=== PATIENT | female | born 2000 | race African-American/Black ===

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

== ENCOUNTER 2018-01-02 17:37 | Emergency (ER) | payer OTHER ==
[2018-01-02 18:17] VITALS: BP 137/73; PULSE 101; TEMP 98.3; BMI 27.0
--- NOTE | 2018-01-02 19:16 | PDOC ---
History of Present Illness - General History Source: Patient Exam Limitations: No Limitations - History of Present Illness Initial Comments: 01/02/18 19:46 A portion of this note was documented by scribe services under my direction. I have reviewed the details of the note, within reason, and agree with the documentation. The case summary and management plan written by me. Assessment and plan: This is a 17-year-old female who comes in complaining of vaginal odor and some discharge. Patient does have a history of an STD chlamydia in the past. Patient midcycle for her menses. Patient otherwise denies any pain fevers or chills. On exam patient did have a moderate amount of discharge with odor. Consistent with bacterial vaginosis. Chlamydia and GC were sent Patient started on Flagyl one tablet twice a day for 7 days Patient instructed to refrain from sexual intercourse until she knows the results of her cultures and if either one is positive she will need to be treated as well as her partner Patient discharged home and told to follow-up with her OB. <Boris Mejias I - Last Filed: 01/02/18 19:46> - General History Source: Patient Exam Limitations: No Limitations - History of Present Illness Initial Comments: The patient is a 17 year old female with past medical history of epilepsy and chlamydia is brought to the ED campaign of fishy odor white vaginal discharge for the past one week. The patient reports shes been sexually active with the same partner for the past one year, she reports having intercourse with and without protections. The patient denies any fever, chills, or any pain. The patient denies any vaginal bleeding. The patient reports shes planning on taking control in the future. Last menses: December 10, 2017 Allergies: NKDA 01/02/18 20:07 <Kayla Malone - Last Filed: 01/02/18 20:12> - General Chief Complaint: Vaginal Sxs Stated Complaint: VAG.DISCHARGE WITH ODOR Time Seen by Provider: 01/02/18 17:42 Past History - Past Medical History COPD: No Seizures: Yes - Suicide/Smoking/Psychosocial Hx Smoking History: Never smoked Have you smoked in the past 12 months: No Hx Alcohol Use: No Drug/Substance Use Hx: No Substance Use Type: None <Boris Mejias I - Last Filed: 01/02/18 19:46> <Kayla Malone - Last Filed: 01/02/18 20:12> - Past Medical History Allergies/Adverse Reactions: Allergies Allergy/AdvReac Type Severity Reaction Status Date / Time No Known Allergies Allergy Verified 01/02/18 18:14 Home Medications: Ambulatory Orders Oxcarbazepine [Oxtellar Xr] 5 tab PO DAILY 07/31/17 metroNIDAZOLE [Flagyl -] 500 mg PO BID #14 tablet 01/02/18 Review of Systems - Review of Systems Able to Perform ROS?: Yes Comments:: General: No fevers or chills, no weakness, no weight loss HEENT: No change in vision. No sore throat,. No ear pain Gastrointestinal: no nausea, vomiting, diarrhea or constipation, No rectal bleeding Genitourinary: (+) White color vaginal discharge. No dysuria, hematuria, or frequency Musculoskeletal: No joint or muscle pain or swelling Neurologic: No headache, vertigo, dizziness or loss of consciousness Psychiatric: nor depression Skin: No rashes or easy bruising Endocrine: no increased thirst or abnormal weight change Allergic: no skin or latex allergy All other systems reviewed and normal 01/02/18 20:11 <Kayla Malone - Last Filed: 01/02/18 20:12> *Physical Exam - Vital Signs Last Vital Signs Temp Pulse Resp BP Pulse Ox 98.3 F 101 H 18 137/73 0 L 01/02/18 17:38 01/02/18 17:38 01/02/18 17:38 01/02/18 17:38 01/02/18 17:38 <Boris Mejias I - Last Filed: 01/02/18 19:46> - Vital Signs Last Vital Signs Temp Pulse Resp BP Pulse Ox 98.3 F 101 H 18 137/73 0 L 01/02/18 17:38 01/02/18 17:38 01/02/18 17:38 01/02/18 17:38 01/02/18 17:38 - Physical Exam Comments: General: Well-nourished well-developed individual, no acute distress HEENT: Throat: Normal, tonsils normal, no erythema or exudate Neck: Supple, no meningeal signs, no lymphadenopathy Eyes::Pupils equal reactive and round, extraocular motion intact Chest: Nontender to palpation Abdomen: Soft, nondistended, normal bowel sounds, nontender to palpation diffusely Extremities: Warm, dry, no cyanosis, clubbing, or edema Pelvis: (+) Mild amount of vaginal discharge with odor. No cervical or ovarie tenderness or masses. Skin: No rashes Neuro: Alert and oriented x3, nonfocal exam, grossly intact, normal gait Psych: Normal mood and affect 01/02/18 20:10 01/02/18 20:11 <Kayla Malone - Last Filed: 01/02/18 20:12> ED Treatment Course - Medications Given in the ED: ED Medications Discontinued Medications Generic Name Dose Route Start Last Admin Trade Name Freq PRN Reason Stop Dose Admin Metronidazole 500 mg 01/02/18 19:33 01/02/18 19:40 Flagyl - PO 01/02/18 19:34 500 mg ONCE ONE Administration <Kayla Malone - Last Filed: 01/02/18 20:12> *DC/Admit/Observation/Transfer - Discharge Dispostion Admit: No <Boris Mejias I - Last Filed: 01/02/18 19:46> - Attestations Scribe Attestion: 01/02/18 20:12 Documentation prepared by Kayla Malone, acting as medical manager for Boris Mejias MD. <Kayla Malone - Last Filed: 01/02/18 20:12> Diagnosis at time of Disposition: Bacterial vaginosis - Discharge Dispostion Disposition: HOME Condition at time of disposition: Stable - Prescriptions Prescriptions: metroNIDAZOLE [Flagyl -] 500 mg PO BID #14 tablet - Patient Instructions Printed Discharge Instructions: DI for Bacterial Vaginosis Additional Instructions: Take Flagyl one tablet twice a day for 7 days. No sexual intercourse until you know the results of your GC and chlamydia cultures if they're positive both you and your partner will need to be treated. Return to the emergency department immediately with ANY new, persistent or worsening symptoms. Continue any medications as previously prescribed by your physician. You should follow up with your OB doctor as soon as possible regarding today's emergency department visit. . Please make sure your doctor reviews the results of your emergency evaluation. Thank you for coming to the Emergency Department today for your care. It was a pleasure to see you today. Please note that your evaluation is INCOMPLETE until you follow-up with your doctor.
[2018-01-02] MEDS ORDERED: metroNIDAZOLE 250 MG TABLET PO ONE (19:33)
[2018-01-02] MEDS ORDERED: metroNIDAZOLE 250 MG TABLET ONE (19:41)
== END 2018-01-02 19:45 | disposition home or self-care (01) ==
LOC: FER 17:37
DX: G40.909 Epilepsy, unspecified, not intractable, without status epilepticus (principal)
CPT/HCPCS: 36415; 87491; 87591; 99283-25

== ENCOUNTER 2018-06-24 16:07 | Emergency (ER) | payer OTHER ==
[2018-06-24 16:15] VITALS: BP 135/78; PULSE 98; TEMP 98.5; BMI 27.8
[2018-06-24 16:38] LABS: HCG,QUALITATIVE URINE Negative
[2018-06-24 16:41] LABS: URINE APPEARANCE Cloudy; URINE BILIRUBIN Negative (NEGATIVE); URINE COLOR Dark; URINE GLUCOSE (UA) Negative (NEGATIVE); URINE KETONE Trace (NEGATIVE); URINE NITRITE Negative (NEGATIVE); URINE UROBILINOGEN 0.2 (0.2-1.0)
[2018-06-24 16:43] LABS: URINE LEUK ESTERASE 2+ (NEGATIVE); URINE PROTEIN 1+ (NEGATIVE)
[2018-06-24] MEDS ORDERED: FLUCONAZOLE 50 MG TABLET PO ONE (16:54)
[2018-06-24] MEDS ORDERED: FLUCONAZOLE 150 MG TABLET PO ONE (16:59)
--- NOTE | 2018-06-24 17:01 | PDOC ---
Attending Attestation - Resident Resident Name: Cheikh Dennis - ED Attending Attestation I have performed the following: I have examined & evaluated the patient, The case was reviewed & discussed with the resident, I agree w/resident's findings & plan, Exceptions are as noted - HPI HPI: 06/24/18 16:54 17 yo F presenting to the ER with a complaint of vaginal discharge No fevers or chills no pelvic pain - Physicial Exam PE: 06/24/18 17:01 Pt is awake and alert RRR CTA No lower abdominal tenderness pelvis examination per Dr Dennis - Medical Decision Making 06/24/18 17:01 given prior h/o chlamydia pt had GC/Chlamydia sent Discharge seems consistent with Yeast infection Will discharge on Diflucan Laboratory Tests 06/24/18 16:31 Urine Blood Negative Urine Nitrite Negative Ur Leukocyte Esterase 2+ H Urine RBC 0-2 Urine WBC 10-20 Ur Epithelial Cells Many Urine Bacteria Moderate contaminated specimen Will await urine culture to decide on treatment
--- NOTE | 2018-06-24 17:04 | PDOC ---
History of Present Illness - General Chief Complaint: Vaginal Sxs Stated Complaint: VAGINAL DISCHARGE W/ FOUL ODOR Time Seen by Provider: 06/24/18 16:16 History Source: Patient Exam Limitations: No Limitations - History of Present Illness Initial Comments: 06/24/18 17:00 Patient is a 17F with history of chlamydia infection and seizures here today complaining of a white discharge for the past few days. Denies fevers, chills, nausea, vomiting. Denies abdominal and pelvic pain. Endorses sexual activity, using condoms. Denies history of PID. Patient is concerned that she has a yeast infection. Past History - Past Medical History Allergies/Adverse Reactions: Allergies Allergy/AdvReac Type Severity Reaction Status Date / Time No Known Allergies Allergy Verified 06/24/18 16:09 Home Medications: Ambulatory Orders Oxcarbazepine [Oxtellar Xr] 6 tab PO DAILY 07/31/17 Levetiracetam [Keppra] mg PO BID 06/24/18 COPD: No Disorders: Yes (h/o bacterial vaginosis) Seizures: Yes - Reproductive History Is Patient Now?: No - Suicide/Smoking/Psychosocial Hx Smoking History: Never smoked Have you smoked in the past 12 months: No Information on smoking cessation initiated: No Hx Alcohol Use: No Drug/Substance Use Hx: No Substance Use Type: None Review of Systems - Review of Systems Comments:: 06/24/18 17:01 GENERAL/CONSTITUTIONAL: No fever or chills. No weakness. HEAD, EYES, EARS, NOSE AND THROAT: No change in vision. No ear pain or discharge. No sore throat. CARDIOVASCULAR: No chest pain or shortness of breath RESPIRATORY: No cough, wheezing, or hemoptysis. GASTROINTESTINAL: No nausea, vomiting, diarrhea or constipation. GENITOURINARY: No dysuria, frequency, or change in urination. MUSCULOSKELETAL: No joint or muscle swelling or pain. No neck or back pain. SKIN: No rash NEUROLOGIC: No headache, vertigo, loss of consciousness, or change in strength/ sensation. ENDOCRINE: No increased thirst. No abnormal weight change HEMATOLOGIC/LYMPHATIC: No anemia, easy bleeding, or history of blood clots. ALLERGIC/IMMUNOLOGIC: No hives or skin allergy. *Physical Exam - Vital Signs Last Vital Signs Temp Pulse Resp BP Pulse Ox 98.5 F 98 H 18 135/78 100 06/24/18 16:07 06/24/18 16:07 06/24/18 16:07 06/24/18 16:07 06/24/18 16:07 - Physical Exam Comments: 06/24/18 17:02 GENERAL: Awake, alert, and fully oriented, in no acute distress PELVIC: Normal external genitalia, no CMT, white thick discharge, no masses, no adnexal tenderness HEAD: No signs of trauma, normocephalic, atraumatic EYES: PERRLA, EOMI, sclera anicteric, conjunctiva clear ENT: Auricles normal inspection, hearing grossly normal, nares patent, oropharynx clear without exudates. Moist mucosa NECK: Normal ROM, supple, no lymphadenopathy, JVD, or masses LUNGS: No distress, speaks full sentences, clear to auscultation bilaterally HEART: Regular rate and rhythm, normal S1 and S2, no murmurs, rubs or gallops, peripheral pulses normal and equal bilaterally. ABDOMEN: Soft, nontender, normoactive bowel sounds. No guarding, no rebound. No masses EXTREMITIES: Normal inspection, Normal range of motion, no edema. No clubbing or cyanosis. NEUROLOGICAL: Cranial nerves II through XII grossly intact. Normal speech, normal gait, no focal sensorimotor deficits SKIN: Warm, Dry, normal turgor, no rashes or lesions noted. ED Treatment Course - ADDITIONAL ORDERS Additional order review: Laboratory Results 06/24/18 16:31 Urine Color Dark Urine Appearance Cloudy Urine pH 6.0 Ur Specific [place] >= 1.030 H Urine Protein 1+ H Urine Glucose (UA) Negative Urine Ketones Trace Urine Blood Negative Urine Nitrite Negative Urine Bilirubin Negative Urine Urobilinogen 0.2 Ur Leukocyte Esterase 2+ H Urine HCG, Qual Negative Medical Decision Making - Medical Decision Making 06/24/18 17:03 Patient is 17F here today with yeast infection. Urine sent, upreg negative. Will treat with fluconazole one time dose. UA pending. 06/24/18 17:34 UA contaminated, will not treat. Discharged with return precautions. *DC/Admit/Observation/Transfer Diagnosis at time of Disposition: Yeast infection involving the vagina and surrounding area - Discharge Dispostion Disposition: HOME Condition at time of disposition: Good Decision to Admit order: No - Referrals Referrals: Coco Mcfarland DO [Staff Physician] - - Patient Instructions Printed Discharge Instructions: DI for Vaginal Yeast Infection Additional Instructions: Please return if you have any new, worsening or concerning symptoms. Please follow up with your OBGYN, one has been listed for you in your paperwork. - Post Discharge Activity
[2018-06-24 17:29] LABS: EPI CELLS MANY /HPF; URINE BACTERIA MODERATE /hpf (NEGATIVE); URINE RBC 0-2 /hpf (0-3)
== END 2018-06-24 17:45 | disposition home or self-care (01) ==
LOC: FER 16:07
DX: B37.3 Candidiasis of vulva and vagina (principal); R56.9 Unspecified convulsions
CPT/HCPCS: 36415; 81003; 81015; 84703; 87491; 87591; 99283-25

== ENCOUNTER 2018-06-27 09:15 | Emergency (ER) | payer OTHER ==
[2018-06-27 09:33] VITALS: BP 132/73; TEMP 99.1; BMI 27.4
--- NOTE | 2018-06-27 09:34 | PDOC ---
Attending Attestation - Resident Resident Name: Nash Zepeda - ED Attending Attestation I have performed the following: I have examined & evaluated the patient, The case was reviewed & discussed with the resident, I agree w/resident's findings & plan, Exceptions are as noted - HPI HPI: Patient arrived by ambulance after having a grand mal seizure while in her college dorm, witnessed by her roommate. The later denied that the patient injured self while seizing. Seemingly postictal as the paramedics informed us that they found her. Alert oriented x 3, cooperating. Patient and her roomm ate and later her grandmother arriving here, stated that she is fully complaint with her medication 06/27/18 12:04 06/27/18 18:48
[2018-06-27] MEDS ORDERED: SODIUM CHLORIDE 1,000 ML IV STA (10:05)
--- NOTE | 2018-06-27 10:05 | PDOC ---
History of Present Illness - General Chief Complaint: Seizure Stated Complaint: SEIZURE Time Seen by Provider: 06/27/18 09:34 History Source: Patient - History of Present Illness Initial Comments: 06/27/18 10:05 17f with pmh of seizure disorder presents to the ED for seizure witnessed by her roomate this morning while she was still in her sleep. The seizure lasted 2 min, with tonic contractions of her body, no incontinence, and post-ictal period lasting 5 minutes. Roomate/best friend witnessed the patient spitting up small quantity of blood from tongue biting. 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 Usually occur every 2 months but she has had 3 within the last month. On oxcarbazepine but was recently started on Keppra on 06/24/2018. Patient denies use of any other medication, alcohol, or recreational drugs. Pediatric Neurologist is Dr. Coronado. 06/27/18 10:12 Past History - Past Medical History Allergies/Adverse Reactions: Allergies Allergy/AdvReac Type Severity Reaction Status Date / Time No Known Allergies Allergy Verified 06/27/18 09:27 Home Medications: Ambulatory Orders Oxcarbazepine [Oxtellar Xr] 6 tab PO DAILY 07/31/17 Levetiracetam [Keppra Xr -] 1,500 mg PO BID 06/27/18 COPD: No CHF: No Disorders: Yes (h/o bacterial vaginosis) Seizures: Yes - Suicide/Smoking/Psychosocial Hx Smoking History: Never smoked Have you smoked in the past 12 months: No Information on smoking cessation initiated: No Hx Alcohol Use: No Drug/Substance Use Hx: No Substance Use Type: None Review of Systems - Review of Systems Able to Perform ROS?: Yes Is the patient limited [place] proficient: No Constitutional: No: Symptoms Reported HEENTM: Yes: Other (tongue pain) Respiratory: No: Symptoms reported Cardiac (ROS): No: Symptoms Reported ABD/GI: No: Symptoms Reported : No: Symptoms Reported Musculoskeletal: No: Symptoms Reported Integumentary: No: Symptoms Reported Neurological: No: Symptoms reported All Other Systems: Reviewed and Negative *Physical Exam - Vital Signs Last Vital Signs Temp Pulse Resp BP Pulse Ox 99.1 F 134 H 16 132/73 96 06/27/18 09:26 06/27/18 09:26 06/27/18 09:26 06/27/18 09:26 06/27/18 09:26 - Physical Exam General Appearance: Yes: Nourished, Appropriately Dressed. No: Apparent Distress HEENT: positive: EOMI, ASHOK, Normal ENT Inspection, Other (small abrasdion to tongue no laceration) Respiratory/Chest: positive: Lungs Clear, Normal Breath Sounds. negative: Chest Tender, Respiratory Distress Cardiovascular: positive: Regular Rhythm, S1, S2, Tachycardia Gastrointestinal/Abdominal: positive: Normal Bowel Sounds, Flat, Soft. negative : Tender Extremity: positive: Normal Capillary Refill, Normal Inspection, Normal Range of Motion Integumentary: positive: Normal Color, Dry, Warm Neurologic: positive: Fully Oriented, Alert, Normal Mood/Affect, Normal Response , Motor Strength 01/26 ED Treatment Course - LABORATORY CBC & Chemistry Diagram: 06/27/18 10:05 06/27/18 10:05 Medical Decision Making - Medical Decision Making 06/27/18 10:19 Will Send labs, urine and give as liter of fluid. 06/27/18 13:13 Will give 500 keppra IV and discharge *DC/Admit/Observation/Transfer Diagnosis at time of Disposition: Seizure disorder - Discharge Dispostion Condition at time of disposition: Good Decision to Admit order: No - Referrals Referrals: Adán Rudolph MD [Staff Physician] - - Patient Instructions Printed Discharge Instructions: DI for Seizure Disorder -- Adult Additional Instructions: Follow up with your neurologist on Sunday. Come back for any new, worsening or concerning symptom. - Post Discharge Activity
[2018-06-27 10:26] LABS: HEMATOCRIT 37.7 % (32.4-45.2); HEMOGLOBIN 12.5 GM/dl (10.7-15.3); LYMPH % 29.2 % (8-40); MCHC 33.1 g/dl (32.0-36.0); RDW 14.3 % (11.6-15.6)
[2018-06-27 10:33] LABS: BASO % 0.2 % (0-2.0); EOS % 3.4 % (0-4.5); MCH 28.1 pg (25.7-33.7); MEAN CELL VOLUME 84.8 fl (80-96); MEAN PLT VOLUME 8.6 fl (7.5-11.1); MONO % 8.5 % (3.8-10.2); NEUT % 58.7 % (42.8-82.8); PLATELET COUNT 273 K/MM3 (134-434); RBC 4.45 M/mm3 (3.60-5.2); WHITE BLOOD COUNT 7.7 K/mm3 (4.0-10.8)
[2018-06-27 10:37] LABS: ALBUMIN 4.1 g/dl (3.5-5.0); ALK PHOS 78 U/L (32-92); ANION GAP 5 MMOL/L (8-16); BILIRUBIN,TOTAL 0.5 mg/dl (0.2-1.0); BLOOD UREA NITROGEN 11 mg/dl (7-18); CALCIUM 9.2 mg/dl (8.4-10.2); CHLORIDE 105 mmol/L (98-107); CO2 24 mmol/L (22-28); CREATININE 0.6 mg/dl (0.6-1.3); GLUCOSE,RANDOM 114 mg/dl (74-106); POTASSIUM 4.1 mmol/L (3.5-5.1); SGOT/AST 38 U/L (10-42); SGPT/ALT 62 U/L (10-40); SODIUM 134 mmol/L (136-145)
[2018-06-27 12:11] LABS: PH,URINE 5.5 (4.5-8); URINE APPEARANCE Slightly; URINE BILIRUBIN Negative (NEGATIVE); URINE COLOR Yellow; URINE GLUCOSE (UA) Negative (NEGATIVE); URINE KETONE Negative (NEGATIVE); URINE LEUK ESTERASE TRACE (NEGATIVE); URINE NITRITE Negative (NEGATIVE); URINE PROTEIN Negative (NEGATIVE); URINE UROBILINOGEN 0.2 (0.2-1.0)
[2018-06-27 12:27] LABS: HCG,QUALITATIVE URINE Negative; URINE WBC 0-2 (0-5)
[2018-06-27 12:28] LABS: EPI CELLS MODERATE /HPF
[2018-06-27] MEDS ORDERED: levETIRAcetam 500 MG/5 ML INJECTION VIAL IVPB ONE ×2 (12:46→12:55)
[2018-06-27 13:15] VITALS: PULSE 88
== END 2018-06-27 13:27 | disposition home or self-care (01) ==
LOC: FER 09:15
PROC: 3E033GC Introduction of Other Therapeutic Substance into Peripheral Vein, Percutaneous Approach (ICD-10-PCS; principal; 2018-06-27)
PROC: 3E0337Z Introduction of Electrolytic and Water Balance Substance into Peripheral Vein, Percutaneous Approach (ICD-10-PCS; 2018-06-27)
DX: G40.909 Epilepsy, unspecified, not intractable, without status epilepticus (principal)
CPT/HCPCS: 36415; 80053; 80156; 80177; 81003; 81015; 84703; 85025; 99283-25; J7030

== ENCOUNTER 2018-08-29 13:13 | Emergency (ER) | payer OTHER ==
[2018-08-29 13:20] VITALS: TEMP 99; BMI 27.4
--- NOTE | 2018-08-29 13:44 | PDOC ---
Attending Attestation - Resident Resident Name: Domonique Tijerina - HPI HPI: 08/29/18 16:18 Pt presents to the ED for witnessed tonic clonic seizure. Patient has a long standing history of seizure disorder, for which she takes oxycarbazipine, topamax and keppra. She reports compliance with her medications. Patient was sleeping when seizure began, but the seizure was witnessed by her roommate. Seizure lasted for several minutes and patient was post ictal afterward. Now is alert and oriented and neurologically intact and has no complaints. 08/29/18 16:25 08/29/18 16:26 - Physicial Exam PE: 08/29/18 16:42 Agree with resident exam. Patient is alert and oriented and in no acute distress. Patient is neurologically intact. 08/29/18 16:46 - Medical Decision Making 08/29/18 16:46 Pt presents to the ED complaining of seizure. known history of seizure disorder and is compliant with medications. Labs are within normal limits. Will discharge home. patient will call her neurologist in the AM.
[2018-08-29] MEDS ORDERED: SODIUM CHLORIDE 1,000 ML IV STA (13:52)
--- NOTE | 2018-08-29 13:57 | PDOC ---
History of Present Illness - General Chief Complaint: Seizure Stated Complaint: SEIZURE Time Seen by Provider: 08/29/18 13:42 History Source: Patient Exam Limitations: No Limitations - History of Present Illness Initial Comments: 08/29/18 13:52 Pt is a 18yo F with PMH of seizures BIBA with roommate s/p seizure around 1 hour ago. Per roommate, another roommate witnessed the seizure, said pt was jerking and this episode lasted 2-5 minutes. Pt said she was sleeping when the seizure started so she does not recall what happened. She states she usually has seizures when she sleeps. Last seizure was in June. She has been seeing a surgeon for possible surgery. She denies recent fevers/chills, headache, chest pain, sob, new medications, illicit drug use, cough, abdominal pain, n/v/d , muscle pain, joint pain. She took her medications this morning. Neurologist: Suman PMH: see hpi PSH: none Meds: oxcarbazepine, Keppra, Topamax Social: denies Allergies: nkda Past History - Past Medical History Allergies/Adverse Reactions: Allergies Allergy/AdvReac Type Severity Reaction Status Date / Time No Known Allergies Allergy Verified 08/29/18 13:14 Home Medications: Ambulatory Orders Oxcarbazepine [Oxtellar Xr] 900 tab PO BID 07/31/17 Levetiracetam [Keppra Xr -] 1,500 mg PO BID 06/27/18 Topiramate 25 mg PO DAILY 08/29/18 COPD: No CHF: No Disorders: Yes (h/o bacterial vaginosis) Seizures: Yes - Suicide/Smoking/Psychosocial Hx Smoking History: Never smoked Have you smoked in the past 12 months: No Information on smoking cessation initiated: No Hx Alcohol Use: No Drug/Substance Use Hx: No Substance Use Type: None Review of Systems - Review of Systems Constitutional: No: Chills, Fever, Weakness HEENTM: No: Eye Pain, Blurred Vision, Recent change in vision, Hearing Loss Respiratory: No: Cough, Shortness of Breath Cardiac (ROS): No: Chest Pain, Lightheadedness, Palpitations, Syncope ABD/GI: Yes: See HPI. No: Constipated, Diarrhea, Nausea, Vomiting : No: Symptoms Reported Musculoskeletal: No: Symptoms Reported, Back Pain, Joint Pain, Muscle Pain, Neck Pain Integumentary: No: Symptoms Reported Neurological: Yes: Seizure. No: Headache, Numbness, Tingling, Tremors, Weakness *Physical Exam - Vital Signs Last Vital Signs Temp Pulse Resp BP Pulse Ox 99 F 118 H 20 150/74 97 08/29/18 13:13 08/29/18 13:13 08/29/18 13:13 08/29/18 13:13 08/29/18 13:13 - Physical Exam General Appearance: Yes: Nourished, Appropriately Dressed. No: Apparent Distress HEENT: positive: EOMI, ASHOK, Normal ENT Inspection, Pharynx Normal. negative: Pale Conjunctivae, Scleral Icterus (R), Scleral Icterus (L) Neck: positive: Trachea midline, Supple Respiratory/Chest: positive: Lungs Clear, Normal Breath Sounds. negative: Crackles, Rales, Rhonchi, Stridor, Wheezing Cardiovascular: positive: Regular Rhythm, Regular Rate, S1, S2. negative: Edema , JVD, Murmur Vascular Pulses: Carotid (R): 2+, Carotid (L): 2+, Dorsalis-Pedis (R): 2+, Doralis-Pedis (L): 2+ Gastrointestinal/Abdominal: positive: Normal Bowel Sounds, Soft. negative: Guarding, Rebound, Tenderness Musculoskeletal: negative: CVA Tenderness, Muscle Spasm, Vertebral Tenderness Extremity: positive: Normal Capillary Refill Integumentary: positive: Normal Color, Dry, Warm Neurologic: positive: real estate instructor II-XII NML intact, Fully Oriented, Alert, Normal Mood/ Affect, Normal Response, Motor Strength 5/5 Moderate Sedation - Procedure Monitoring Vital Signs: Procedure Monitoring Vital Signs Temperature 99 F 08/29/18 13:13 Pulse Rate 118 H 08/29/18 13:13 Respiratory Rate 20 08/29/18 13:13 Blood Pressure 150/74 08/29/18 13:13 O2 Sat by Pulse Oximetry (%) 97 08/29/18 13:13 ED Treatment Course - LABORATORY CBC & Chemistry Diagram: 08/29/18 14:03 08/29/18 14:03 Medical Decision Making - Medical Decision Making 08/29/18 13:56 Pt is a 18yo F with PMH of seizures BIBA with roommate s/p seizure around 1 hour ago. Per roommate, another roommate witnessed the seizure, said pt was jerking and this episode lasted 2-5 minutes. Pt said she was sleeping when the seizure started so she does not recall what happened. She states she usually has seizures when she sleeps. Last seizure was in June. She has been seeing a surgeon for possible surgery. She denies recent fevers/chills, headache, chest pain, sob, new medications, illicit drug use, cough, abdominal pain, n/v/d , muscle pain, joint pain. She took her medications this morning. Vitals: tachycardia 118 otherwise wnl PE: benign Will send cbc, cmp and medication levels. 08/29/18 16:13 no seizure activity while in ED. electrolytes and cbc wnl. 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 Pt agrees to plan to be DC. Has appropriate follow up with neurology *DC/Admit/Observation/Transfer Diagnosis at time of Disposition: Seizure disorder - Discharge Dispostion Disposition: HOME Condition at time of disposition: Good Decision to Admit order: No - Referrals - Patient Instructions Printed Discharge Instructions: DI for Seizure Disorder -- Adult Additional Instructions: You were seen here today because you had a seizure. Your lab tests are normal and the blood test for your medications are still pending. Please see your neurologist for further evaluation and management of your symptoms. Please try to make an appointment by the end of the week! It is important that you get your seizures under control. Remember to take your medications as prescribed. Come back to the emergency room if you have another seizure, if you fall down, if you hit your head, if you have back to back seizures, if they last for more than 5 minutes, you have headache or if any new concerning symptom develops. Thank you - Post Discharge Activity
[2018-08-29 14:23] LABS: BASO % 0.2 % (0-2.0); EOS % 0.6 % (0-4.5); HEMATOCRIT 37.7 % (32.4-45.2); HEMOGLOBIN 12.6 GM/dl (10.7-15.3); LYMPH % 20.5 % (8-40); MCH 28.4 pg (25.7-33.7); MCHC 33.5 g/dl (32.0-36.0); MEAN CELL VOLUME 84.6 fl (80-96); MEAN PLT VOLUME 8.3 fl (7.5-11.1); MONO % 10.3 % (3.8-10.2); NEUT % 68.4 % (42.8-82.8); PLATELET COUNT 246 K/MM3 (134-434); RBC 4.45 M/mm3 (3.60-5.2); RDW 14.1 % (11.6-15.6); WHITE BLOOD COUNT 7.1 K/mm3 (4.0-10.8)
[2018-08-29 14:55] LABS: ALK PHOS 63 U/L (32-92); ANION GAP 4 MMOL/L (8-16); BILIRUBIN,TOTAL 0.7 mg/dl (0.2-1.0); BLOOD UREA NITROGEN 6 mg/dl (7-18); CALCIUM 8.9 mg/dl (8.4-10.2); CHLORIDE 106 mmol/L (98-107); CO2 24 mmol/L (22-28); CREATININE 0.6 mg/dl (0.6-1.3); GLUCOSE,RANDOM 90 mg/dl (74-106); SGOT/AST 21 U/L (10-42); SGPT/ALT 21 U/L (10-40); SODIUM 134 mmol/L (136-145); TOT PROT 6.9 g/dl (6.4-8.3)
[2018-08-29 15:56] LABS: URINE APPEARANCE Clear; URINE BILIRUBIN Negative (NEGATIVE); URINE COLOR Yellow; URINE GLUCOSE (UA) Negative (NEGATIVE); URINE KETONE Negative (NEGATIVE); URINE LEUK ESTERASE Negative (NEGATIVE); URINE NITRITE Negative (NEGATIVE); URINE PROTEIN Negative (NEGATIVE); URINE UROBILINOGEN 0.2 (0.2-1.0)
[2018-08-29 16:25] VITALS: BP 127/72; PULSE 78
== END 2018-08-29 16:30 | disposition home or self-care (01) ==
LOC: FER 13:13
PROC: 3E0337Z Introduction of Electrolytic and Water Balance Substance into Peripheral Vein, Percutaneous Approach (ICD-10-PCS; principal; 2018-08-29)
DX: G40.909 Epilepsy, unspecified, not intractable, without status epilepticus (principal)
CPT/HCPCS: 36415; 80053; 80177; 80201; 81003; 85025; 99284-25; J7030